=== PATIENT | male | born 1950 | race Caucasian/White ===

== ENCOUNTER → 2016-08-14 | Outpatient (CLI) | payer OTHER ==
[2016-08-14 13:19] LABS: Basophils # (auto) 0 uL; DEFINITIVE VIEW TRANSMISSION; Eosinophils # (auto) 0.1 uL; Eosinophils % (auto) 1.7 % (0.0-7.0); Hematocrit 52.6 % (41.0-53.0); Hemoglobin 16.2 g/dL (13.5-17.5); Lymphocytes # (auto) 1.4 uL; Lymphocytes % (auto) 33.4 % (10.0-50.0); Mean Corpuscular Hemoglobin 25.2 pg (28.0-32.0); Mean Corpuscular Hgb Conc. 30.8 g/dL (32.0-36.0); Mean Platelet Volume 8.3 fL (7.4-10.4); Monocytes # (auto) 0.3 uL; Monocytes % (auto) 8.1 % (0.0-12.0); Neutrophils # (auto) 2.4 uL; Neutrophils % (auto) 55.8 % (37.0-80.0); Platelet Count (auto) 232 10^3/uL (140-450); Red Cell Distribution Width 14.7 % (11.6-16.0); White Blood Cell 4.2 10^3/uL (4.4-10.8)
== END | disposition home or self-care (01) ==
LOC: LAB 10:56
DX: E29.1 Testicular hypofunction (principal)
CPT/HCPCS: 36415; 84403; 85025

== ENCOUNTER 2019-11-02 08:32 | Emergency (ER) | payer MEDICARE, OTHER ==
[~2019-11-02] VITALS: Ht 185.4 cm; Wt 90.7 kg
[2019-11-02 08:56] VITALS: BP 178/96
[2019-11-02] MEDS ORDERED: CLINDAMYCIN 600MG IV 50 ML IV ONE (09:15)
[2019-11-02] MEDS: KETOROLAC TROMETH 30 MG/ML 1ML VIAL ONE ×2 (09:20→09:25)
[2019-11-02] MEDS: KETOROLAC TROMETH 15 mg/ml 1ML VL IV ONE ×2 (09:21→09:25)
== END 2019-11-02 09:59 | disposition home or self-care (01) ==
LOC: ER 08:32
DX: K02.9 Dental caries, unspecified (principal)
CPT/HCPCS: 96365; 96375; 99284; J1885; J3490